=== PATIENT | female | born 1970 | race African-American/Black ===

== ENCOUNTER 2017-02-11 18:21 | Emergency (ER) | payer OTHER ==
[~2017-02-11] VITALS: Ht 162.6 cm; Wt 110.0 kg
[~2017-02-11 18:21] MED LIST: LORT5TAB PO; NAPR550 PO; Z.0.NO CURRENT MEDS
[2017-02-11 18:23] VITALS: BP 173/81; PULSE 93; RESP 20; TEMP 98.1; O2SAT 99
[2017-02-11] MEDS ORDERED: METO100T PO (19:20)
--- NOTE | 2017-02-11 19:22 | PD ---
HPI Chief Complaint: Pain: Acute or Chronic Time Seen by Provider: 19:09 Travel History International Travel<30 days: No Contact w/Intl Traveler<30days: No Traveled to known affect area: No History of Present Illness HPI 46-year-old female presents to the emergency department for evaluation of right shoulder pain that has been ongoing for approximately 2 weeks. Patient is feeling a does a lot of heavy lifting. No specific injury. Patient has history of high blood pressure. She denies any fevers or chills. Reports some limited range of motion due to pain. Severity is mild. Patient has not taken anything [id number] for pain. PFSH Past Medical History Blood Disorders: No Cancer: No Cardiovascular Problems: Yes Endocrine: No Genitourinary: No Headaches: Yes Hypertension: Yes Immune Disorder: No Musculoskeletal: Yes Neurologic: Yes Psychiatric: No Reproductive: No Respiratory: Yes ?: Not LMP: 01/2017 : 2 Para: 2 Tubal Ligation: Yes Past Surgical History AICD: No Arteriovenous Shunt: No Section: Yes (1) Cholecystectomy: Yes Insulin Pump: No Joint Replacement: No Pacemaker: No Social History Alcohol Use: No Tobacco Use: No Substance Use: No Allergies-Medications (Allergen,Severity, Reaction): Coded Allergies: No Known Allergies (Verified Adverse Reaction, Unknown, 02/11/17) Reported Meds & Prescriptions Reported Meds & Active Scripts Active Reported Metoprolol Tartrate 100 Mg Tab 100 Mg PO DAILY Review of Systems Except as stated in HPI: all other systems reviewed are Neg Physical Exam Narrative GENERAL: Well-nourished, well-developed female patient, ambulatory. Afebrile. SKIN: Focused skin assessment warm/dry. HEAD: Normocephalic. Atraumatic. EYES: No scleral icterus. No injection or drainage. NECK: Supple, trachea midline. No JVD or lymphadenopathy. CARDIOVASCULAR: Regular rate and rhythm without murmurs, gallops, or rubs. RESPIRATORY: Breath sounds equal bilaterally. No accessory muscle use. Lungs sounds are clear to auscultation. GASTROINTESTINAL: Abdomen soft, non-tender, nondistended. MUSCULOSKELETAL: No cyanosis, or edema. No tenderness to palpation of the shoulder. She has limited flexion due to pain. No warmth, erythema over joint. BACK: Nontender without obvious deformity. No CVA tenderness. Data Data Last Documented VS Vital Signs Date Time Temp Pulse Resp B/P (MAP) Pulse Ox O2 Delivery O2 Flow Rate FiO2 02/11/17 19:20 20 02/11/17 18:23 98.1 93 173/81 (111) 99 Room Air Orders Orders Shoulder, Complete (>2vws) (02/11/17 ) Ibuprofen (Motrin) (02/11/17 19:30) Splint Or Brace Apply/Monitor (02/11/17 20:10) MDM Medical Decision Making Medical Screen Exam Complete: Yes Emergency Medical Condition: Yes Medical Record Reviewed: Yes Interpretation(s) x-ray of the right shoulder =- CONCLUSION: Possible rotator cuff calcific tendinosis. Otherwise within normal limits. Differential Diagnosis Ligamentous injury versus strain versus fracture Narrative Course 46-year-old female presents to the emergency department for evaluation of right shoulder pain for 2-1/2 weeks. Patient appears well on exam. X-ray of the right shoulder is ordered and pending. Patient is given ibuprofen 600 mg by mouth. X-ray of the right shoulder shows possible rotator cuff calcific tendinosis. Otherwise within normal limits. Patient is provided sling. She is instructed to continue range of motion exercises to prevent inversion shoulder. Patient will be discharged with a prescription for ibuprofen. She verbalizes agreement and understanding. The patient was discharged in stable condition with instructions, including return instructions and follow up instructions. Diagnosis Primary Impression: Right shoulder pain Qualified Codes: M25.511 - Pain in right shoulder Referrals: Dave Gross MD call for appointment Patient Instructions: General Instructions, Shoulder Pain (ED) Departure Forms: Tests/Procedures, Work Release Enter return to work date: Feb 13, 2017 Additional Instructions: Wear sling as needed for support. Follow Up with orthopedist. Take ibuprofen as instructed as needed with food for pain. Return to the emergency department for any acute worsening of symptoms. Med/Other Pt SpecificInfo: Prescription(s) given Scripts Ibuprofen (Ibuprofen) 600 Mg Tab 600 MG PO TID Y for PAIN SCALE 1 TO 10, #21 TAB 0 Refills Prov: Marge Garcia WAN 02/11/17 Disposition: 01 DISCHARGE HOME Condition: Stable Marge Garcia WAN Feb 11, 2017 19:22
[2017-02-11] MEDS ORDERED: IBUPROFEN 600 MG TAB PO ONE (19:30)
--- NOTE | 2017-02-11 20:07 | RADRPT ---
EXAM DATE/TIME: 02/11/2017 19:38 [facility] COMPARISON: No previous studies available for comparison. INDICATIONS : Pain from lifting. MEDICAL HISTORY : None. SURGICAL HISTORY : None. ENCOUNTER: Initial ACUITY: 1 week PAIN SCORE: 7/10 LOCATION: Right superior aspect of shoulder. FINDINGS: 4 views right shoulder. Bone alignment within normal limits. No evidence of fracture.Acromioclavicul ar joint and glenohumeral joint within normal limits. 4 mm calcific density in the region of the dick s minor tendon indicating possible calcific tendinosis. CONCLUSION: Possible rotator cuff calcific tendinosis. Otherwise within normal limits. Bakari Banuelos MD on February 11, 2017 at 20:05 Board Certified Radiologist. This report was verified electronically.
[2017-02-11] MEDS ORDERED: IBUP-232 PO (20:14)
== END 2017-02-11 20:49 | disposition home or self-care (01) ==
LOC: NEPD 18:21
DX: M25.511 Pain in right shoulder (principal); I10 Essential (primary) hypertension; Z79.899 Other long term (current) drug therapy
CPT/HCPCS: 73030; 99283